=== PATIENT | female | born 1970 | race Caucasian/White ===

== ENCOUNTER 2018-02-09 21:34 | Emergency (ER) | payer OTHER ==
[~2018-02-09] VITALS: Ht 170.2 cm; Wt 119.7 kg
[~2018-02-09 21:34] MED LIST: CIPRO500 MG PO; CLONAZEPAM1 MG PO; LEVSIN0.125 MG PO; NORCO 10-325 T1 EACH; SAPHRIS5 MG PO; TRAZODONE HCL100 MG PO; ULTRAM50 MG PO; VIIBRYD10 MG PO; Z.0.AMBIEN10 MG PO
--- NOTE | 2018-02-09 22:52 | Diagnostic Imaging Report ---
KNEE RIGHT THREE VIEWS Comparison: None Clinical history: Status post fall with right knee pain x1 week Findings: Mild generalized soft tissue swelling. Curvilinear density posterior to the knee on lateral view is likely external. Subtle ossification along the fibular head appears fairly well-corticated. Otherwise no acute fracture. Impression: Age-indeterminate fibular head avulsion fracture, favor chronic. Correlate with site of pain. Otherwise no acute fracture. Signed by: Dr Melly Fitzpatrick MD on 02/09/2018 10:48 PM
== END 2018-02-09 23:41 | disposition home or self-care (01) ==
LOC: ER 21:34
DX: S83.421A Sprain of lateral collateral ligament of right knee, initial encounter (principal); S80.01XA Contusion of right knee, initial encounter; W01.0XXA Fall on same level from slipping, tripping and stumbling without subsequent striking against object, initial encounter; Y92.488 Other paved roadways as the place of occurrence of the external cause; F32.9 Major depressive disorder, single episode, unspecified
CPT/HCPCS: 99282

== ENCOUNTER → 2018-02-18 | Outpatient (CLI) | payer OTHER ==
--- NOTE | 2018-02-18 17:03 | Diagnostic Imaging Report ---
Bone Scan, three-phase Reason for exam: 47 F sustained fall to knees on concrete about 3 weeks ago. Persistent pain in right knee. Radiopharmaceutical: Tc-99m MDP 27 mCi Comparison: Right knee radiographs 02/09/2018 Following intravenous administration of the radiopharmaceutical, dynamic flow and immediate blood pool images of the knees in the anterior and posterior projection followed by delayed total body and selected spot images were obtained. Flow and blood pool images show symmetric distribution of tracer activity to the knees without focal abnormality. On the delayed images, focal markedly increased tracer is seen in the head of the right fibula. Focal increased tracer is seen in the left knee at the distal medial femoral condyle. Degenerative changes are seen in the shoulders and feet. Impression: 1. Finding in the right fibular head is consistent with recent fracture and corresponds to finding on recent radiographs of the right knee. 2. 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 Signed by: Dr. Mar Pope M.D. on 02/18/2018 4:59 PM
== END ==
LOC: NM 08:00
PROVIDERS: ATTEND Specialist
DX: R22.41 Localized swelling, mass and lump, right lower limb (principal)
CPT/HCPCS: 78306; A9503

== ENCOUNTER 2018-09-06 16:03 | Emergency (ER) | payer OTHER ==
[~2018-09-06] VITALS: Ht 170.2 cm; Wt 113.9 kg
--- OUTSIDE RECORDS SUMMARY | 2018-09-06 16:06 | XMS REPORT | Continuity of Care Document ---
Author Author [facility] Interface Address Unknown Phone Unavailable Problems Problem Status Onset Date Classification Date Reported Comments Source Allergic rhinitis 06/19/2016 Diagnosis 06/19/2016 [facility] Allergic Rhinitis Problem 06/19/2016 [facility] Medications Medication Details Route Status Patient Instructions Ordering Provider Order Date Source Amoxicillin 500 MG Oral Capsule amoxicillin 500 mg capsule Active [facility] Azelastine hydrochloride 0.137 MG/ACTUAT Metered Dose Nasal [place] azelastine 137 mcg (0.1 %) nasal spray aerosol Active [facility] Clonazepam 1 MG Oral Tablet clonazepam 1 mg tablet Active [facility] Fluticasone propionate 0.05 MG/ACTUAT Metered Dose Nasal [place] fluticasone 50 mcg/actuation nasal spray,suspension Inhale 2 sprays into each nostril EVERY DAY Active [facility] lamotrigine 25 MG Chewable Tablet lamotrigine 25 mg chewable dispersible tablet Active [facility] lamotrigine 25 MG Oral Tablet lamotrigine 25 mg tablet Active [facility] na na Active [facility] Phentermine Hydrochloride 37.5 MG Oral Tablet phentermine 37.5 mg tablet TK 1 T PO QD Active [facility] Dextromethorphan 3 MG/ML / Promethazine Hydrochloride 1.25 MG/ML Oral Solution promethazine-DM 6.25 mg-15 mg/5 mL syrup Active [facility] Asenapine 5 MG Sublingual Tablet [Saphris] Saphris (black vidal) 5 mg sublingual tablet Active [facility] tramadol hydrochloride 50 MG Oral Tablet tramadol 50 mg tablet Active [facility] Trazodone Hydrochloride 50 MG Oral Tablet trazodone 50 mg tablet Active [facility] vilazodone hydrochloride 40 MG Oral Tablet [Viibryd] Viibryd 40 mg tablet Active [facility] levocetirizine dihydrochloride 5 MG Oral Tablet [Xyzal] Xyzal 5 mg tablet Take 1 tablet every day by oral route for 30 days. Active [facility] Allergies, Adverse Reactions, Alerts Substance Category Reaction Severity Reaction type Status Date Reported Comments Source Sulfa (Sulfonamide Antibiotics) Hallucinations Moderate Allergy to substance 06/19/2016 [facility] Immunizations Immunization Date Given Site Status Last Updated Comments Source influenza, seasonal, injectable 11/04/2015 completed [facility] Results Order Name Results Value Reference Range Date Interpretation Comments Source Vital Signs Vital Sign Value Date Comments Source Diastolic (mm Hg) 84 06/19/2016 [facility] Height 67 06/19/2016 [facility] Systolic (mm Hg) 126 06/19/2016 [facility] Weight 240 06/19/2016 [facility] Encounters Location Location Details Encounter Type Encounter Number Reason For Visit Attending Provider ADM Date DC Date Status Source [place] - [facility] - [id number] Esparza, BAND DIRECTOR: [address] [place] [address], Ph. [id number] Cintia Esparza 06/19/2016 [facility] Procedures Procedure Code Date Perfomer Comments Source
--- OUTSIDE RECORDS SUMMARY | 2018-09-06 16:07 | XMS REPORT | Encounter Summary ---
Author Organization Unknown Address [address] [place] [address] Phone [phone] Reason for Visit Medical Complaint Instructions 1. Allergic rhinitis allergies: care instructions Xyzal 5 mg tablet fluticasone 50 mcg/actuation nasal spray,suspension Discussion Note: None recorded. Plan of Care Patient Instructions Please seek care (PCP, Urgent Care, ER) if symptoms get worse or do not resolve in 3 to 4 days or if you notice any signs of infection including fever,redness, tenderness or yellow discharge or onset of shortness of breath, lips or tounge swelling.Please read all the side effects of the medications, if you develop any side effects immediately stop the medication and please contact your PCP/UC[facility] or [facility] or call 911.Patient verbalizes understanding and agrees to the plan. Reminders Provider Appointments None recorded. Lab None recorded. Referral None recorded. Procedures None recorded. Surgeries None recorded. Imaging None recorded. Medications Name Start Date amoxicillin 500 mg capsule azelastine 137 mcg (0.1 %) nasal spray aerosol clonazepam 1 mg tablet fluticasone 50 mcg/actuation nasal spray,suspension Inhale 2 sprays into each nostril EVERY DAY lamotrigine 25 mg chewable dispersible tablet lamotrigine 25 mg tablet na phentermine 37.5 mg tablet TK 1 T PO QD promethazine-DM 6.25 mg-15 mg/5 mL syrup Saphris (black vidal) 5 mg sublingual tablet tramadol 50 mg tablet trazodone 50 mg tablet Viibryd 40 mg tablet Xyzal 5 mg tablet Take 1 tablet every day by oral route for 30 days. Medications Administered None recorded. Vitals Height Weight BMI Blood Pressure 5 ft 7 in 240 lbs 37.6 126/84 Lab Results None recorded. Allergies Name Reaction Severity Onset Sulfa (Sulfonamide Antibiotics) Hallucinations Moderate Problems Name Status Onset Date Source Allergic Rhinitis Active Encounter Procedures None recorded. Vaccine List Vaccine Type influenza, seasonal, injectable 11/03/2015 Social History Smoking Status Never Smoker Past Encounters 06/19/2016 Allergic Rhinitis Cintia Esparza, COLD PATCHER: [address] [place] [address], Ph. History of Present Illness Ldsvj-Ygiwoaifjw-Nzpquoc Reported By: Patient HPI: Location: head/sinuses. Quality: sore throat. Duration: 1days. Severity: moderate. Onset/Timing: sudden. Context: no sick contacts, no foreign travel, non-smoker, allergies. Modifying factors: OTC medication. Associated Symptoms: no sputum production, no shortness of breath, no wheezing, no change in number of pillows needed to sleep at night, no sweats, no significant weight gain, no significant weight loss, no morning cough, no vomiting, no diarrhea, no rash, no nausea Notes: Pt reports that she started with all the above symptoms from this afternoon, denies fever. Review of Systems Basic Reported By: Patient Constitutional: Constitutional: no fever Eyes: Eyes: dry eyes Adcc-Chsx-Bkvta-Throat: Ears: no ear complaints. Nose: nose/sinus problems. Mouth/Throat: no bleeding gums, no mouth complaints, no teeth problems, sore throat Cardiovascular: Cardiovascular: no chest pain, no shortness of breath, no known heart murmur Respiratory: Respiratory: no cough, no wheezing, no shortness of breath Gastrointestinal: Gastrointestinal: no abdominal pain, no vomiting / diarrhea Genitourinary: Genitourinary: no urinary complaints, no discharge Musculoskeletal: Musculoskeletal: no muscle aches, no muscle weakness, no arthralgias/joint pain, no back pain Skin: Skin: no abnormal / changing mole, no jaundice, no rashes Neurologic: Neurologic: no loss of consciousness, no weakness, no numbness, no seizures, no dizziness, headache Physical Exam Adult Basic, Adult Female Complete Constitutional: General Appearance: healthy-appearing, well-nourished, well-developed. Level of Distress: NAD. Ambulation: ambulating normally Psychiatric: Mental Status: active and alert. Orientation: to time, to place, to person Eyes: Lids and Conjunctivae: non-injected, no discharge, no pallor. Pupils: PERRLA. Corneas: grossly intact. EOM: EOMI. Lens: clear. Sclerae: non-icteric Llr-Hsia-Tkrvw-Throat: Ears: no lesions on external ear, no outer ear tenderness, EACs clear, TMs clear. Hearing: no hearing loss. Nose: no lesions on external nose, nares patent, no septal deviation, nasal passages clear, no sinus tenderness, nasal discharge--rhinorrhea, post nasal drip. Lips, Teeth, and Gums: no mouth or lip ulcers, no bleeding gums, normal dentition. Oropharynx: moist mucous membranes, no erythema, no exudates, tonsils not enlarged Neck: Neck: supple. Lymph Nodes: no cervical LAD Lungs: Respiratory effort: no dyspnea, no tachypnea. Auscultation: breath sounds normal Cardiovascular: Heart Auscultation: RRR, no murmurs Neurologic: Gait and Station: normal gait Skin: Inspection and palpation: no rash
--- OUTSIDE RECORDS SUMMARY | 2018-09-06 16:07 | XMS REPORT ---
Author Author [facility] Address Unknown Phone Unavailable Care Team Providers Care Route Driver Salesperson Name Role Phone MEL NATH Unavailable Unavailable Paul AMADOR Unavailable Unavailable Problems This patient has no known problems. Allergies, Adverse Reactions, Alerts This patient has no known allergies or adverse reactions. Medications This patient has no known medications. Results Test Description Test Time Test Comments Text Results Atomic Results Result Comments BONE and/or JOINT WHOLE BODY [place] [address] Patient Name: NAVIN GUZMAN MR #: [id number] : 1970 Age/Sex: 47/F Req #: [id number] [facility] Physician: Ordered by: MEL NATH MD Report #: [id number] Location: [place] Room/Bed: Procedure: [id number] NM/BONE and/or JOINT WHOLE BODY Exam Date: 02/18/18 Exam Time: 0845 REPORT STATUS: Signed Bone Scan, three-phase Reason for exam: 47 F sustained fall to knees on concrete about 3 weeks ago. Persistent pain in right knee. Radiopharmaceutical: Tc-99m MDP 27 mCi Comparison: Right knee radiographs 02/09/2018 Following intravenous administration of the radiopharmaceutical, dynamic flow and immediate blood pool images of the knees in the anterior and posterior projection followed by delayed total body and selected spot images were obtained. Flow and blood pool images show symmetric distribution of tracer activity to the knees without focal abnormality. On the delayed images, focal markedly increased tracer is seen in the head of the right fibula. Focal increased tracer is seen in the left knee at the distal medial femoral condyle. Degenerative changes are seen in the shoulders and feet. Impression: 1. Finding in the right fibular head is consistent with recent fracture and corresponds to finding on recent radiographs of the right knee. 2. 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 Signed by: Dr. Bird Pope M.D. on 02/18/2018 4:59 PM Dictated By: BIRD POPE MD 58 Transcribed By: ROM on 02/18/181658 COPY TO: MEL NATH MD KNEE RIGHT THREE VIEWS [place] [address] Patient Name: NAVIN GUZMAN MR #: [id number] : 1970 Age/Sex: 47/F Req #: [id number] Adm Physician: Ordered by: SAGAR AMADOR MD Report #: [id number] Location: ER Room/Bed: Procedure: [id number] DX/KNEE RIGHT THREE VIEWS Exam Date: 02/09/18 Exam Time: 2154 REPORT STATUS: Signed KNEE RIGHT THREE VIEWS Comparison: None Clinical history: Status post fall with right knee pain x1 week Findings: Mild generalized soft tissue swelling. Curvilinear density posterior to the knee on lateral view is likely external. Subtle ossification along the fibular head appears fairly well-corticated. Otherwise no acute fracture. Impression: Age-indeterminate fibular head avulsion fracture, favor chronic. Correlate with site of pain. Otherwise no acute fracture. Signed by: Dr Angeli Fitzpatrick MD on 02/09/2018 10:48 PM Dictated By: ANGELI FITZPATRICK MD 47 Transcribed By: ROM on 02/09/182247 COPY TO: SAGAR AMADOR MD
[2018-09-06] MEDS ORDERED: HYDROCODONE/APAP 10MG-325MG TAB PO ONE (16:45)
[2018-09-06] MEDS ORDERED: DIAZEPAM 5 MG TAB PO NR (16:45)
[2018-09-06] MEDS ORDERED: DIAZEPAM 2 MG TAB PO ONE (16:45)
[2018-09-06 17:46] VITALS: BP 114/78
== END 2018-09-06 17:00 | disposition home or self-care (01) ==
LOC: ER 16:03
DX: S16.1XXA Strain of muscle, fascia and tendon at neck level, initial encounter (principal); S46.811A Strain of other muscles, fascia and tendons at shoulder and upper arm level, right arm, initial encounter; S29.012A Strain of muscle and tendon of back wall of thorax, initial encounter; X50.9XXA Other and unspecified overexertion or strenuous movements or postures, initial encounter; Y93.E5 Activity, floor mopping and cleaning; Y92.009 Unspecified place in unspecified non-institutional (private) residence as the place of occurrence of the external cause; F31.9 Bipolar disorder, unspecified; Z88.2 Allergy status to sulfonamides
CPT/HCPCS: 99282

== ENCOUNTER 2018-11-27 19:37 | Emergency (ER) | payer OTHER ==
[~2018-11-27] VITALS: Ht 170.2 cm; Wt 113.9 kg
[2018-11-27] MEDS ORDERED: SODIUM CHLORIDE 0.9% 1000ML 1,000 ML IV STA (20:38)
[2018-11-27] MEDS ORDERED: ONDANSETRON HCL INJ 2MG/ML 2ML 2 MG/ML VIAL IV STA (20:38)
[2018-11-27] MEDS ORDERED: MORPHINE SULFATE INJ 4 MG/ML INJ 1ML IV STA (20:38)
[2018-11-27] MEDS ORDERED: CEFTRIAXONE SOD 1 GM VIAL IV ONE (21:00)
[2018-11-27 21:20] LABS: BASOPHILS % 0.3 % (0.0-1.0); HEMATOCRIT 42.9 % (34.2-44.1); LYMPHOCYTES # (AUTO) 2.8 (1.0-3.2); LYMPHOCYTES % 29.9 % (18.0-39.1); MEAN CORPUSCULAR HEMOGLOBIN 29.4 pg (28-32); MEAN CORPUSCULAR HGB CONC 32.6 g/dL (31-35); MEAN CORPUSCULAR VOLUME 90.1 fL (81-99); MONOCYTES # (AUTO) 0.5 (0.2-0.8); MONOCYTES % 4.9 % (4.4-11.3); NEUTROPHILS % 64.6 % (38.7-80.0); PLATELET COUNT 292 x10e3/uL (140-360); RED BLOOD COUNT 4.76 x10e6/uL (3.6-5.1)
[2018-11-27 21:38] LABS: ALANINE AMINOTRANSFERASE 16 IU/L (0-55); ALBUMIN 3.6 g/dL (3.5-5.0); ALBUMIN/GLOBULIN RATIO 1.2 (0.8-2.0); ALKALINE PHOSPHATASE 98 IU/L (40-150); ANION GAP 14.3 mmol/L (8-16); BLOOD UREA NITROGEN 13 mg/dL (7-26); BUN/CREATININE RATIO 13 (6-25); CALCIUM 9.2 mg/dL (8.4-10.2); CARBON DIOXIDE 25 mmol/L (22-29); CHLORIDE 102 mmol/L (98-107); CREATININE, SERUM 0.98 mg/dL (0.57-1.11); EST GLOMERULAR FILTRATION RATE 60 ML/MIN (60-); GLUCOSE 96 mg/dL (74-118); POTASSIUM 4.3 mmol/L (3.5-5.1); SODIUM 137 mmol/L (136-145)
[2018-11-27] MEDS ORDERED: SODIUM CHLORIDE 0.9% 50ML 50 ML ONE (21:46)
[2018-11-27] MEDS ORDERED: IOPAMIDOL 370 MG/ML 200 ML INFUS..BTL INJ ONE (21:46)
[2018-11-27 21:58] LABS: AMPHETAMINES SCREEN,URINE NEGATIVE (NEGATIVE); BENZODIAZEPINES SCREEN,URINE NEGATIVE (NEGATIVE); CLARITY,URINE HAZY (CLEAR); COLOR,URINE YELLOW (YELLOW); PHENCYCLIDINE SCREEN,URINE NEGATIVE (NEGATIVE)
[2018-11-27 21:59] LABS: BILIRUBIN,URINE NEGATIVE (NEGATIVE); KETONES,URINE TRACE (NEGATIVE); LEUKOCYTE ESTERASE ,URINE NEGATIVE (NEGATIVE); NITRITE,URINE NEGATIVE (NEGATIVE); PREGNANCY TEST, URINE NEGATIVE (NEGATIVE); PROTEIN,URINE DIPSTICK NEGATIVE (NEGATIVE); URINE UROBILINOGEN 0.2 mg/dL (0.2 - 1)
[2018-11-27 22:42] LABS: BACTERIA,URINE FEW /HPF; EPITHELIAL CELLS,URINE FEW /LPF; MUCUS,URINE FEW (RARE); RBC,URINE 0-5 /HPF (0-5); WBC,URINE (MAN) 0-5 /HPF (0-5)
--- NOTE | 2018-11-27 23:32 | Diagnostic Imaging Report ---
EXAM: CT Abdomen and Pelvis WITH contrast INDICATION: ^r/o appy ^[id number] ^2220 COMPARISON: CT dated 07/02/2015 TECHNIQUE: Abdomen and pelvis were scanned utilizing a multidetector helical scanner from the lung base to the pubic symphysis after administration of IV contrast. Coronal and sagittal reformations were obtained. Dose modulation, iterative reconstruction, and/or weight based adjustment of the mA/kV was utilized to reduce the radiation dose to as low as reasonably achievable. Routine protocol was performed. Scan was performed when during portal venous phase. IV CONTRAST: 100 mL of Isovue-370 ORAL CONTRAST: Water COMPLICATIONS: None RADIATION DOSE: Total DLP: 889.44 mGy*cm Estimated effective dose: (DLP x 0.015 x size factor) mSv CTDIvol has been reviewed. It is below the limits set by the Radiation Protocol Committee (RPC). FINDINGS: LINES and TUBES: None. LOWER THORAX: Unremarkable HEPATOBILIARY: No focal hepatic lesions. No biliary ductal dilation. GALLBLADDER: Surgically absent. SPLEEN: No splenomegaly. PANCREAS: No focal masses or ductal dilatation. ADRENALS: No adrenal nodules KIDNEYS/URETERS: Kidneys enhance symmetrically. No hydronephrosis. No cystic or solid mass lesions. Left midpole subcentimeter hypodensity is too small to characterize. No stones. GI TRACT: No abnormal distention, wall thickening, or evidence of bowel obstruction. There are scattered diverticula within the colon without evidence of diverticulitis. Appendix is normal. PELVIC ORGANS/BLADDER: Probably anterior uterine body degenerated fibroid (series 2, image 77). Bilateral adnexal/ovarian cysts. Bladder is unremarkable. LYMPH NODES: No lymphadenopathy. Nonspecific felicia mesentery with few prominent mesenteric lymph nodes, also seen in 2015. VESSELS: Unremarkable. PERITONEUM / RETROPERITONEUM: No free air or fluid. BONES: Unremarkable. SOFT TISSUES: Small fat-containing periumbilical hernia. IMPRESSION: 1. No acute inflammatory process in the abdomen/pelvis. 2. Normal appendix. 3. Peripherally enhancing anterior uterine body lesion, likely a degenerated fibroid. Signed by: Dr. Forrest Trejo MD on 11/27/2018 11:29 PM
== END 2018-11-28 00:20 | disposition home or self-care (01) ==
LOC: ER 19:37
DX: R10.31 Right lower quadrant pain (principal); R11.0 Nausea; F41.9 Anxiety disorder, unspecified; F31.9 Bipolar disorder, unspecified
CPT/HCPCS: 36415; 74177; 80053; 80307; 81001; 81025; 84702; 85025; 87086; 99284; J0696; J2270; J2405; J7030; Q9967

== ENCOUNTER 2019-04-19 15:40 | Emergency (ER) | payer OTHER ==
[~2019-04-19] VITALS: Ht 170.2 cm; Wt 113.9 kg
--- OUTSIDE RECORDS SUMMARY | 2019-04-19 15:44 | XMS REPORT | Continuity of Care Document ---
Author Author [facility] Address Unknown Phone Unavailable Care Team Providers Care Nurse Sitter Name Role Phone [employer] Unavailable Unavailable Problems Problem Status Onset Date Classification Date Reported Comments Source Allergic rhinitis 06/19/2016 Diagnosis 06/19/2016 [facility] Allergic Rhinitis Problem 06/19/2016 [facility] Medications Medication Details Route Status Patient Instructions Ordering Provider Order Date Source Amoxicillin 500 MG Oral Capsule amoxicillin 500 mg capsule Active [facility] Azelastine hydrochloride 0.137 MG/ACTUAT Metered Dose Nasal [place] azelastine 137 mcg (0.1 %) nasal spray aerosol Active [facility] Clonazepam 1 MG Oral Tablet clonazepam 1 mg tablet Active [facility] Fluticasone propionate 0.05 MG/ACTUAT Metered Dose Nasal [place] fluticasone 50 mcg/actuation nasal spray,suspension Inhale 2 [...] influenza, seasonal, injectable 11/04/2015 completed [facility] Results No Data Provided for This Section Pathology Reports No Data Provided for This Section Diagnostic Reports No Data Provided for This Section Consultation Notes No Data Provided for This Section Discharge Summaries No Data Provided for This Section History and Physicals No Data Provided for This Section Vital Signs Vital Sign Value Date Comments Source Diastolic (mm Hg) 84 06/19/2016 [facility] Height 67 06/19/2016 [facility] Systolic (mm Hg) 126 06/19/2016 [facility] Weight 240 06/19/2016 [facility] Encounters Location Location Details Encounter Type Encounter Number Reason For Visit Attending Provider ADM Date DC Date Status Source [place] - [facility] - [id number] Cintiaarslan Esparza, WELL TESTING OPERATOR: [address] [place] [address], Ph. [id number] Cintiaarslan Esparza 06/19/2016 [facility] Procedures No Data Provided for This Section Assessment and Plan No Data Provided for This Section Plan of Care No Data Provided for This Section Social History Social History Date Source Smoking Status Never Smoker 06/19/2016 [facility] Family History No Data Provided for This Section Advance Directives No Data Provided for This Section Functional Status No Data Provided for This Section
--- NOTE | 2019-04-19 16:21 | Diagnostic Imaging Report ---
CT BRAIN WO HISTORY: Right-sided weakness, trouble with speech COMPARISON: None. TECHNIQUE: Noncontrast axial scans were obtained from skull base to the vertex. Coronal and sagittal reconstructions obtained from the axial data. One or more of the following dose reduction techniques were used: Automated exposure control, adjustment of the mA and/or kV according to patient size, and/or utilization of iterative reconstruction technique. DISCUSSION: Scalp/Skull: Unremarkable. Brain sulci: Appropriate for patient's age. Ventricles: Normal in size and configuration. No hydrocephalus. Extra-axial spaces: No masses or fluid collections. Mild carotid siphon calcifications. Parenchyma: Mild periventricular white matter hypodensities are likely chronic microvascular ischemic changes. Otherwise, no mass, hemorrhage, or large vascular territory acute infarct. Dural sinuses: No abnormal densities. Sellar/Suprasellar region: Intact. Skull base: Intact. Incidental findings: Mild left sphenoid sinus mucosal thickening. IMPRESSION: 1. No acute intracranial abnormalities. 2. Mild supratentorial chronic microvascular ischemic change. Signed by: Dr. Obie Muñoz M.D. on 04/19/2019 4:18 PM
[2019-04-19] MEDS ORDERED: SODIUM CHLORIDE 0.9% 1000ML 1,000 ML IV STA ×2 (16:32)
[2019-04-19] MEDS ORDERED: SODIUM CHLORIDE 0.9% 1000ML 1,000 ML ONE ×2 (16:32→16:37)
[2019-04-19] MEDS ORDERED: PANTOPRAZOLE 40 MG 10ML VIAL IV ONE (16:32)
--- NOTE | 2019-04-19 16:36 | NUR ---
pt to be tx'd to another hospital. family in room and updated on poc/pending orders
[2019-04-19 16:45] LABS: BASOPHILS % 0.2 % (0.0-1.0); HEMATOCRIT 41.5 % (34.2-44.1); HEMOGLOBIN 13.5 g/dL (12.0-16.0); LYMPHOCYTES % 23.9 % (18.0-39.1); MEAN CORPUSCULAR HEMOGLOBIN 28.7 pg (28-32); MEAN CORPUSCULAR HGB CONC 32.5 g/dL (31-35); MEAN CORPUSCULAR VOLUME 88.3 fL (81-99); MONOCYTES # (AUTO) 0.5 (0.2-0.8); MONOCYTES % 5.4 % (4.4-11.3); NEUTROPHILS % 70.3 % (38.7-80.0); PLATELET COUNT 237 x10e3/uL (140-360); RED CELL DISTRIBUTION WIDTH 13.1 % (11.7-14.4)
[2019-04-19] MEDS ORDERED: FOLIC ACID 5 MG/ML VIAL IV ONE (16:45)
[2019-04-19] MEDS ORDERED: ALTEPLASE 50 MG/VIAL (29 MILLION IU) IV ONE ×2 (16:45)
[2019-04-19 16:49] LABS: CALCIUM 8.8 mg/dL (8.4-10.2); CHLORIDE 101 mmol/L (98-107); MAGNESIUM 2.2 MG/DL (1.3-2.1); POTASSIUM 3.4 mmol/L (3.5-5.1); PROTHROMBIN TIME 13.7 seconds (11.9-14.5); SODIUM 137 mmol/L (136-145)
[2019-04-19 16:50] LABS: PARTIAL THROMBOPLASTIN TIME 28.5 seconds (23.8-35.5)
[2019-04-19 16:54] LABS: ANION GAP 13.4 mmol/L (8-16); CARBON DIOXIDE 26 mmol/L (22-29)
[2019-04-19 16:55] LABS: ALBUMIN 3.2 g/dL (3.5-5.0); ALBUMIN/GLOBULIN RATIO 0.8 (0.8-2.0); ALKALINE PHOSPHATASE 89 IU/L (40-150); BLOOD UREA NITROGEN 11 mg/dL (7-26); BUN/CREATININE RATIO 13 (6-25); CREATININE, SERUM 0.88 mg/dL (0.57-1.11); EST GLOMERULAR FILTRATION RATE > 60 ML/MIN (60-); GLUCOSE 83 mg/dL (74-118)
[2019-04-19 16:57] LABS: ALANINE AMINOTRANSFERASE 12 IU/L (0-55); CREATINE KINASE 62 IU/L (29-168)
--- NOTE | 2019-04-19 17:01 | NUR ---
TPA STARTED;LOADING DOSE OF 9MG/ INFUSION AT 81MG
[2019-04-19 17:03] LABS: CREATINE KINASE MB < 1.00 ng/mL (0-4.3)
[2019-04-19 17:23] LABS: BILIRUBIN,URINE NEGATIVE (NEGATIVE); CLARITY,URINE CLEAR (CLEAR); COLOR,URINE YELLOW (YELLOW); KETONES,URINE NEGATIVE (NEGATIVE); LEUKOCYTE ESTERASE ,URINE NEGATIVE (NEGATIVE); NITRITE,URINE NEGATIVE (NEGATIVE); PROTEIN,URINE DIPSTICK NEGATIVE (NEGATIVE); URINE UROBILINOGEN 0.2 mg/dL (0.2 - 1)
--- NOTE | 2019-04-19 17:27 | NUR ---
ICU --7 SOUTH/BED 5. [phone]-ATTEMPTING TO CALL REPORT AT THIS TIME.
[2019-04-19 17:37] LABS: BACTERIA,URINE MODERATE /HPF
[2019-04-19 17:38] LABS: EPITHELIAL CELLS,URINE FEW /LPF
--- NOTE | 2019-04-19 17:46 | NUR ---
REPORT CALLED TO ALYSSA CUMMINGS AT THIS TIME
--- NOTE | 2019-04-19 18:03 | Diagnostic Imaging Report ---
CTA NECK, CTA BRAIN HISTORY: Right-sided weakness COMPARISON: Head CT from earlier today TECHNIQUE: CTA of the head and neck was performed with intravenous iodine based contrast. Coronal, sagittal, 3-D, and oblique maximum intensity projection reformations were created. One or more of the following dose reduction techniques were used: Automated exposure control, adjustment of the mA and/or kV according to patient size, and/or utilization of iterative reconstruction technique. 100 mL of Isovue-370 were administered. DISCUSSION: If present, any cervical carotid stenosis will be measured as a percentage relative to the [place] artery distal to the stenosis (NASCET). CERVICAL CTA: Right Carotid: Patent, no abnormalities. Left Carotid: Patent, no abnormalities. Right vertebral artery: Patent, no abnormalities. Left vertebral artery: Patent, no abnormalities. INTRACRANIAL CTA: Carotid arteries: Minimal bilateral carotid siphon calcifications are present without significant stenosis. No abnormalities in the A1 or M1 segments. Vertebrobasilar Circulation: Right vertebral artery: Patent, no abnormalities. Left vertebral artery: Patent, no abnormalities. Basilar artery: Patent, no abnormalities. Posterior cerebral arteries: Patent, no abnormalities. Normal Variants: ACom: Patent. PComs: Not visualized. Vertebral arteries: Left slightly dominant The major dural venous sinuses are grossly patent. Additional findings: The adenoid tonsils are mildly prominent. The thyroid gland is mildly enlarged and mildly heterogeneous. There is mild mucosal thickening in the left sphenoid sinus. There are mild degenerative changes throughout the spine. IMPRESSION: 1. Minimal bilateral carotid siphon calcifications without significant stenosis. 2. No other intracranial or cervical CTA abnormalities. Signed by: Dr. Obie Muñoz M.D. on 04/19/2019 6:00 PM
--- NOTE | 2019-04-19 18:04 | Diagnostic Imaging Report ---
EXAMINATION: CHEST SINGLE (PORTABLE) INDICATION: Stroke. Weakness. ^ERMD ORDER ^[id number] ^1730 ^Y COMPARISON: None FINDINGS: TUBES and LINES: None. LUNGS: Lungs are well inflated. Lungs are clear. There is no evidence of pneumonia or pulmonary edema. PLEURA: No pleural effusion or pneumothorax. HEART AND MEDIASTINUM: The cardiomediastinal silhouette is unremarkable. BONES AND SOFT TISSUES: No acute osseous lesion. Soft tissues are unremarkable. UPPER ABDOMEN: No free air under the diaphragm. IMPRESSION: No acute thoracic abnormality. Signed by: Dr. Luis Eduardo Cabral M.D. on 04/19/2019 6:01 PM
--- NOTE | 2019-04-19 19:05 | NUR ---
ETA FOR AMBULANCE IS APPROX. 30 MIN.
--- NOTE | 2019-04-19 19:20 | NUR ---
family updated. pt speaking in complete sentences and able to make needs known.
--- NOTE | 2019-04-19 20:01 | NUR ---
[facility] HERE TO [place] PT. Addendum: 04/19/19 at 2016 by [facility]; HERE TO TX PT. VENKATESH.
[2019-04-19] MEDS ORDERED: IOPAMIDOL 370 MG/ML 200 ML INFUS..BTL INJ ONE (22:27)
[2019-04-19] MEDS ORDERED: SODIUM CHLORIDE 0.9% 100 ML 100 ML ONE (22:27)
== END 2019-04-19 20:01 | disposition other institution (70) ==
LOC: ER 15:40
DX: R53.1 Weakness (principal); I63.512 Cerebral infarction due to unspecified occlusion or stenosis of left middle cerebral artery; R26.2 Difficulty in walking, not elsewhere classified
CPT/HCPCS: 36415; 70450; 70496; 70498; 71045; 80048; 80053; 81001; 82550; 82553; 83735; 83880; 84443; 84484; 85025; 85610; 85730; 93005; 99284; J7030; Q9967

== ENCOUNTER 2019-04-23 07:30 | Observation (INO) | payer OTHER ==
[~2019-04-23] VITALS: Ht 170.2 cm; Wt 113.4 kg
--- OUTSIDE RECORDS SUMMARY | 2019-04-23 07:35 | XMS REPORT | Clinical Summary ---
Author Author KAREN [facility] Address Unknown Phone Unavailable Care Team Providers Care Sound Controller Name Role Phone Abhilash Purdy MD PCP Allergies No Known Allergies Medications End Date Status Medication Sig Dispensed Refills Start Date Active clonazePAM (KLONOPIN) 1 Take 1 mg by 0 MG tablet mouth 2 (two) times daily as needed for Anxiety. Active asenapine [address] 5 mg 0 under the tongue 2 (two) times daily. Active vilazodone (VIIBRYD) 40 Take 40 mg by 0 mg tablet mouth nightly. Active traZODone (DESYREL) 50 MG Take 50 mg by 0 tablet mouth 3 (three) times daily. Active pantoprazole sodium Take 20 mg by 0 (PROTONIX ORAL) mouth. Active lamoTRIgine (LAMICTAL) 25 Take 25 mg by 0 MG tablet mouth 2 (two) times daily. Active Problems Problem Noted Date Stroke 04/19/2019 S/P admn tPA in diff fac w/n last 24 hr bef adm to crnt fac 04/19/2019 Anxiety 04/19/2019 Bipolar 1 disorder 04/19/2019 Encounters Care Team Description Date Type Specialty 04/20/2019 Orders Only General Internal Medicine 04/20/2019 Travel Chalino Skaggs MD Cerebrovascular accident (CVA), unspecified mechanism (HCC) 04/19/2019 Hospital Intensive Care - Encounter 04/20/2019 after 04/22/2018 Social History Date Tobacco Use Types Packs/Day Years Used Never Smoker Smokeless Tobacco: Never Used Alcohol Use Drinks/Week oz/Week Comments No Alcohol Habits Answer Date Recorded How often do you have a drink containing alcohol? Never 04/20/2019 How many drinks containing alcohol do you have on Not asked a typical day when you are drinking? How often do you have six or more drinks on one Not asked occasion? Sex Assigned at Date Recorded Not on file Industry Job Start Date Occupation Not on file Not on file Not on file Travel End Travel History Travel Start No recent travel history available. Last Filed Vital Signs Time Taken Vital Sign Reading 04/20/2019 9:00 PM CDT Blood Pressure 122/60 04/20/2019 9:00 PM CDT Pulse 63 04/20/2019 8:00 PM CDT Temperature 36.8 C (98.3 F) 04/20/2019 9:00 PM CDT Respiratory Rate 14 04/20/2019 9:00 PM CDT Oxygen Saturation 93% - Inhaled Oxygen - Concentration 04/19/2019 9:15 PM CDT Weight 112.3 kg (247 lb 9.2 oz) 04/19/2019 9:15 PM CDT Height 170.2 cm (5' 7") 04/19/2019 9:15 PM CDT Body Mass Index 38.78 Plan of Treatment Not on file Procedures Comments Procedure Name Priority Date/Time Associated Diagnosis ECHOCARDIOGRAM REPORT - 04/20/2019 SCAN 9:10 PM CDT MR BRAIN WITHOUT IV Routine 04/20/2019 CONTRAST 7:53 PM CDT MAGNESIUM Routine 04/20/2019 2:50 PM CDT POTASSIUM Routine 04/20/2019 2:50 PM CDT 2D ECHO W/ DOPPLER Routine 04/20/2019 (CW/PW/COLOR) 10:52 AM CDT CBC W/PLT COUNT & AUTO Routine 04/20/2019 DIFFERENTIAL 4:07 AM CDT PHOSPHORUS Routine 04/20/2019 4:07 AM CDT MAGNESIUM Routine 04/20/2019 4:07 AM CDT T4, FREE Routine 04/20/2019 4:07 AM CDT TROPONIN I Routine 04/20/2019 4:07 AM CDT TSH/FREE T4 IF INDICATED Routine 04/20/2019 4:07 AM CDT VITAMIN B12 Routine 04/20/2019 4:07 AM CDT HEMOGLOBIN A1C Routine 04/20/2019 4:07 AM CDT CBC W/PLT COUNT & AUTO Routine 04/20/2019 DIFFERENTIAL 4:07 AM CDT LIPID PANEL Routine 04/20/2019 4:07 AM CDT BASIC METABOLIC PANEL (7) Routine 04/20/2019 4:07 AM CDT TROPONIN I Routine 04/20/2019 12:43 AM CDT after 04/22/2018 Results * ECHOCARDIOGRAM REPORT - SCAN (04/20/2019 9:10 PM CDT) Narrative Performed At * MR brain without IV contrast (04/20/2019 7:53 PM CDT) Specimen Narrative Performed At [facility] MR, BRAIN, WITHOUT CONTRAST INDICATION: Stroke TECHNIQUE: Multiplanar, multisequence MR imaging of the brain was obtained. COMPARISON: None FINDINGS: Brain parenchyma is normal in morphology. Midline structures are normally developed. No restricted diffusion to suggest recent ischemic insult. No abnormal susceptibility. Scattered T2/FLAIR hyperintense foci within the periventricular and subcortical white matter are nonspecific, however, statistically represent chronic microvascular ischemic changes. No hydrocephalus. Orbits are within normal limits. No obstructive paranasal sinus disease. IMPRESSION: Unremarkable MRI of the brain. Signed: Ligia Hubbard MD Report Verified Date/Time:04/20/2019 19:51:20 Reading Location: [address] Neuro Reading Room Procedure Note Interface, External Ris In - 04/20/2019 7:54 PM CDT FINAL REPORT MR, BRAIN, WITHOUT CONTRAST INDICATION: Stroke TECHNIQUE: Multiplanar, multisequence MR imaging of the brain was obtained. COMPARISON: None FINDINGS: Brain parenchyma is normal in morphology. Midline structures are normally developed. No restricted diffusion to suggest recent ischemic insult. No abnormal susceptibility. Scattered T2/FLAIR hyperintense foci within the periventricular and subcortical white matter are nonspecific, however, statistically represent chronic microvascular ischemic changes. No hydrocephalus. Orbits are within normal limits. No obstructive paranasal sinus disease. IMPRESSION: Unremarkable MRI of the brain. Signed: Ligia Hubbard MD Report Verified Date/Time: 04/20/2019 19:51:20 Reading Location: [facility] [id number] Neuro Reading Room Performing Organization Address City/State/Zipcode Phone Number RIS * Potassium (04/20/2019 2:50 PM CDT) Potassium 3.7Comment: Specimen slightly 3.5 - 5.1 meq/L [facility] hemolyzed [facility] Specimen Blood Narrative Performed At Check Serum Potassium level 2 hours after oral potassium replacement completed [facility] or 30 min after intravenous potassium replacement. [facility] Performing Organization Address [facility] [place] [address] [phone] [place] [address] * Magnesium (04/20/2019 2:50 PM CDT) Only the most recent of 2 results within the time period is included. Magnesium 2.5Comment: Specimen slightly 1.6 - 2.6 mg/dL [facility] hemolyzed [facility] Specimen Blood Narrative Performed At Check Serum Potassium level 2 hours after oral potassium replacement completed [facility] or 30 min after intravenous potassium replacement. [facility] Performing Organization Address [facility] Hospital[facility] Phone Number [address] [address] [facility] * 2D Echo W/Doppler(CW/PW/Color) (04/20/2019 10:52 AM CDT) Ejection Fraction [facility] Specimen Narrative Performed At Transthoracic Echocardiography Report (TTE) [facility] Demographics [facility] Patient NameCHADANIELLA DREW Date of Study 04/20/2019 KALI Visit [id number] own Room Number 7519 Number Date of 1970Referring Chalino Skaggs Physician Age 48 year(s)Aquatic Facility Manager Tony Lockett [facility] Skating Carhop Janak Rodgers MD Procedure Type of Study TTE procedure:2DECHO W DOPPLER(CW/PW/COLOR) (Routine) Indications:Suspected cardiac source of emboli. Clinical History Stroke/TIA HGB 12 HCT 37 % Contrast Medium: Bubble Study. Height: 67 inches Weight: 112.04 kg (247 lbs) BSA: 2.21 m^2 BMI: 38.69 kg/m^2 HR: 54 bpm BP: 142/75 mmHg Summary Normal left ventricular chamber size. Normal wall thickness. Normal overall left ventricular systolic function. No apparent segmental wall motion abnormalities. Estimated LVEF by qualitative assessment is normal (55-60%) . Normal diastolic function. Otherwise, essentially normal exam. Signature Findings Left Ventricle Normal left ventricular chamber size. Normal wall thickness. Normal overall left ventricular systolic function. No apparent segmental wall motion abnormalities. Estimated LVEF by qualitative assessment is normal (55-60%) . Normal diastolic function. Left AtriumLA size is normal . Right VentricleNormal right ventricle structure and function. Right Atrium Normal right atrium. Atrial SeptumIV saline contrast injection was negative for a PFO (patent foramen ovale) at rest and post Valsalva . Aortic Valve Normal AoV structure. Mild aortic regurgitation. Mitral Valve Mild MV leaflet thickening. Trace mitral regurgitation. Tricuspid ValveA trace of tricuspid regurgitation. Estimated peak systolic PA pressure is 25-30 mmHg . Normal TV structure. Pulmonic Valve Normal PV structure and function by limited views and Doppler. AortaAortic root size (SInus of Valsalva diameter) is normal . PericardiumNo evidence of pericardial effusion. IVC/SVC/PA/PV/PleuralThe estimated RA pressure by IVC dynamics 5-10mmHg . Chambers/Structures Left Atrium LA Dimension: 4.03 cmLA Area: 20.96 cm^2 LA Volume: 64.35 ml LA Vol. Index: 29 ml/m^2 Left Ventricle LVIDd: 4.56 cm LV Septum Diastolic: 0.97 cm LV PW Diastolic: 0.96 cm LVEDV Girard's:102.89 ml LVESV Girard's:44.55 ml LVEF Girard's: 56.7 %LVEDVI: 47 ml/m^2 LVESVI: 20 ml/m^2 LVOT Diameter: 2.21 cm Aorta Ao Root S of Leonor.: 2.96 cm Doppler/Quantitative Measurements Mitral Valve MV Peak E-Wave: 0.96 m/sMV Peak A-Wave: 0.6 m/s E/A Ratio: 1.6 Peak Gradient: 3.69 mmHg Deceleration Time: 206.5 msec MV Casimiro. Peak: Tissue Doppler E' Lateral Velocity: 0.11 m/s A' Lateral Velocity: 0.08 m/s E/E': 8.94 LVOT Peak Velocity: 1.18 m/s Peak Gradient: 5.59 mmHg Mean Velocity: 0.71 m/s Mean Gradient: 2.4 mmHg LVOT Diameter: 2.21 cmLVOT VTI: 26.31 cm LVOT Area: 3.84 cm^2LVOT SV:100.87 ml LVOT CO: 5.45 l/min LVOT CI: 2.47 l/min/m^2 Procedure Note Interface, External Ris In - 04/20/2019 5:08 PM CDT Transthoracic Echocardiography Report (TTE) Demographics Patient Name DANIELLA GUZMAN Date of Study 04/20/2019 KALI Gender Female Visit Number [id number] Race Unknown Room Number 7519 Number Date of 1970 Referring Chalino Skaggs Physician Age 48 year(s) Aquatic Facility Manager Tony Lockett [facility] Skating Carhop Janak Vallejo Interpreting Narciso Rodgers MD Procedure Type of Study TTE procedure:2DECHO W DOPPLER(CW/PW/COLOR) (Routine) Indications:Suspected cardiac source of emboli. Clinical History Stroke/TIA HGB 12 HCT 37 % Contrast Medium: Bubble Study. Height: 67 inches Weight: 112.04 kg (247 lbs) BSA: 2.21 m^2 BMI: 38.69 kg/m^2 HR: 54 bpm BP: 142/75 mmHg Summary Normal left ventricular chamber size. Normal wall thickness. Normal overall left ventricular systolic function. No apparent segmental wall motion abnormalities. Estimated LVEF by qualitative assessment is normal (55-60%) . Normal diastolic function. Otherwise, essentially normal exam. Signature Findings Left Ventricle Normal left ventricular chamber size. Normal wall thickness. Normal overall left ventricular systolic function. No apparent segmental wall motion abnormalities. Estimated LVEF by qualitative assessment is normal (55-60%) . Normal diastolic function. Left Atrium LA size is normal . Right Ventricle Normal right ventricle structure and function. Right Atrium Normal right atrium. Atrial Septum IV saline contrast injection was negative for a PFO (patent foramen ovale) at rest and post Valsalva . Aortic Valve Normal AoV structure. Mild aortic regurgitation. Mitral Valve Mild MV leaflet thickening. Trace mitral regurgitation. Tricuspid Valve A trace of tricuspid regurgitation. Estimated peak systolic PA pressure is 25-30 mmHg . Normal TV structure. Pulmonic Valve Normal PV structure and function by limited views and Doppler. Aorta Aortic root size (SInus of Valsalva diameter) is normal . Pericardium No evidence of pericardial effusion. IVC/SVC/PA/PV/Pleural The estimated RA pressure by IVC dynamics 5-10mmHg . Chambers/Structures Left Atrium LA Dimension: 4.03 cm LA Area: 20.96 cm^2 LA Volume: 64.35 ml LA Vol. Index: 29 ml/m^2 Left Ventricle LVIDd: 4.56 cm LV Septum Diastolic: 0.97 cm LV PW Diastolic: 0.96 cm LVEDV Girard's:102.89 ml LVESV Girard's:44.55 ml LVEF Girard's: 56.7 % LVEDVI: 47 ml/m^2 LVESVI: 20 ml/m^2 LVOT Diameter: 2.21 cm Aorta Ao Root S of Leonor.: 2.96 cm Doppler/Quantitative Measurements Mitral Valve MV Peak E-Wave: 0.96 m/s MV Peak A-Wave: 0.6 m/s E/A Ratio: 1.6 Peak Gradient: 3.69 mmHg Deceleration Time: 206.5 msec MV Casimiro. Peak: Tissue Doppler E' Lateral Velocity: 0.11 m/s A' Lateral Velocity: 0.08 m/s E/E': 8.94 LVOT Peak Velocity: 1.18 m/s Peak Gradient: 5.59 mmHg Mean Velocity: 0.71 m/s Mean Gradient: 2.4 mmHg LVOT Diameter: 2.21 cm LVOT VTI: 26.31 cm LVOT Area: 3.84 cm^2 LVOT SV:100.87 ml LVOT CO: 5.45 l/min LVOT CI: 2.47 l/min/m^2 Performing Organization Address City/[facility] Phone Number [facility] * TSH/Free T4 If Indicated (04/20/2019 4:07 AM CDT) TSH 6.68 (H) 0.35 - 4.94 uIU/mL [facility] Specimen Blood Performing Organization Address City/[facility]/Zipcode Phone Number [facility] [address] [place] [address] [facility] * CBC with platelet count + automated diff (04/20/2019 4:07 AM CDT) WBC 6.9 3.5 - 10.5 K/L [facility] RBC 4.17 3.93 - 5.22 M/L [facility] Hemoglobin 12.0 11.2 - 15.7 GM/DL [facility] Hematocrit 37.0 34.1 - 44.9 % [facility] MCV 88.7 79.4 - 94.[address] [facility] MCH 28.8 25.6 - 32.[address] [facility] MCHC 32.4 32.2 - 35.5 GM/DL [facility] RDW 13.2 11.7 - 14.4 % [facility] Platelets 228 150 - 450 K/CU MM [facility] MPV 10.1 9.4 - 12.[address] [facility] nRBC 0 0 - 0 /[address] [facility] % Neutros 67 % [facility] % Lymphs 27 % [facility] % Monos 6 % [facility] % Eos 0 % [facility] % Baso 0 % [facility] # Neutros 4.61 1.56 - 6.13 K/L [facility] # Lymphs 1.88 1.18 - 3.74 K/L [facility] # Monos 0.41 (H) 0.24 - 0.36 K/L [facility] # Eos 0.00 (L) 0.04 - 0.36 K/L [facility] # Baso 0.01 0.01 - 0.08 K/L [facility] Immature 0 0 - 1 % [facility] Granulocytes-[facility] Specimen Blood Performing Organization Address City/State/Zipcode Phone Number [place] [phone] [place] [address] [facility] * Troponin I (04/20/2019 4:07 AM CDT) Only the most recent of 2 results within the time period is included. Troponin I 0.01 0.00 - 0.03 ng/mL [facility] Specimen Blood Narrative Performed At Troponin I (TnI) levels must be interpreted in the context of the presenting [facility] symptoms and the clinical findings. Elevated TnI levels indicate myocardial [facility] damage, but are not specific for ischemic heart disease. Elevated TnI levels are seen in patients with other cardiac conditions (including myocarditis and congestive heart failure), and slight TnI elevations occur in patients with other conditions, including sepsis, renal failure, acidosis, acute neurological disease, and persistent tachyarrhythmia. Fasting Performing Organization Address City/[facility]/Zipcode Phone Number [address] [address] [phone] [place] [address] * T4, free (04/20/2019 4:07 AM CDT) Free T4 0.99 0.70 - 1.48 ng/dL [facility] Specimen Blood Performing Organization Address City/[facility] Phone Number [address] [address] [phone] [place] [address] * Phosphorus (04/20/2019 4:07 AM CDT) Phosphorus 3.3 2.3 - 4.7 mg/dL [facility] Specimen Blood Narrative Performed At Fasting [facility] Performing Organization Address City/State/Zipcode Phone Number [address] [address] [facility] * Hemoglobin A1c - Fasting (04/20/2019 4:07 AM CDT) Hemoglobin A1C 5.2 4.3 - 6.1 % [facility] Specimen Blood Narrative Performed At Fasting [facility] Performing Organization Address City/State/Zipcode Phone Number [facility] [address] [place] [address] [facility] * Vitamin B12 (04/20/2019 4:07 AM CDT) Vitamin B12 254 213 - 816 pg/mL [facility] Specimen Blood Performing Organization Address City/State/Zipcode Phone Number [facility] [address] [place], [place] [phone] [facility] * Fasting lipid panel (04/20/2019 4:07 AM CDT) Triglycerides 58 mg/dL [facility] Cholesterol 113 mg/dL [facility] HDL 36 mg/dL [facility] LDL Calculated 65 mg/dL [facility] Specimen Blood Narrative Performed At Triglyceride Reference Range: [facility] Low Risk <150 [facility] [id number] High Risk 200-499 Very High Risk>=500 Cholesterol Reference Range: Low Risk <200 [id number] High Risk>240 HDL Cholesterol Reference Range: Low Risk >=60 High Risk <40 LDL Cholesterol Reference Range: Optimal<100 Near [id number] [id number] [id number] Very High >=190 Fasting Fasting Performing Organization Address City/State/Zipcode Phone Number [facility] [address] [place] [address] [facility] * Basic Metabolic Panel (04/20/2019 4:07 AM CDT) Sodium 137 136 - 145 meq/L [facility] Potassium 2.8 (L) 3.5 - 5.1 meq/L [facility] Chloride 105 98 - 107 meq/L [facility] CO2 26 22 - 29 meq/L [facility] BUN 9 7 - 21 mg/dL [facility] Creatinine 0.74 0.57 - 1.25 mg/dL [facility] Glucose 86 70 - 105 mg/dL [facility] Calcium 7.8 (L) 8.4 - 10.2 mg/dL [facility] EGFR 83Comment: ESTIMATED GFR IS mL/min/1.73 sq m [facility] NOT ACCURATE CREATININE [facility] CLEARANCE IN PREDICTING GLOMERULAR FILTRATION RATE. ESTIMATED GFR IS NOT APPLICABLE FOR DIALYSIS PATIENTS. Specimen Blood Narrative Performed At [facility] Performing Organization Address City/State/Zipcode Phone Number [facility] [address] [place], [place] [phone] [facility] after 04/22/2018 Insurance Payer Benefit Subscriber ID Type Phone Address Plan / Group [employer] - [place] [employer] xxxxxxxxxxx LOCAL PLUS Advance Directives For more information, please contact: [address] [phone] Date Inactivated Comments Code Status Date Activated 04/21/2019 12:33 AM Full Code 04/19/2019 10:01 PM This code status was determined by: Patient
--- OUTSIDE RECORDS SUMMARY | 2019-04-23 07:35 | XMS REPORT | Continuity of Care Document ---
Author Author [facility] Address Unknown Phone Unavailable Care Team Providers Care Dynamics Ax Solution Architect Name Role Phone [employer] Unavailable Unavailable Problems Problem Status Onset Date Classification Date Reported Comments Source Allergic rhinitis 06/19/2016 Diagnosis 06/19/2016 [facility] Allergic Rhinitis Problem 06/19/2016 [facility] Medications Medication Details Route Status Patient Instructions Ordering Provider Order Date Source Amoxicillin 500 MG Oral Capsule amoxicillin 500 mg capsule Active [facility] Azelastine hydrochloride 0.137 MG/ACTUAT Metered Dose Nasal [place] azelastine 137 mcg (0.1 %) nasal spray aerosol Active [facility] Clonazepam 1 MG Oral Tablet clonazepam 1 mg tablet Active [facility] Fluticasone propionate 0.05 MG/ACTUAT Metered Dose Nasal [place] fluticasone 50 mcg/actuation nasal spray,suspension Inhale 2 [...] Date Status Source [place] - [facility] - [id number] Cintiaarslan Esparza, SENIOR TALENT MANAGEMENT CONSULTANT: [address] [place] [address], Ph. [id number] Cintiaarslan Esparza 06/19/2016 [facility] Procedures No Data [...]
--- NOTE | 2019-04-23 08:47 | Diagnostic Imaging Report ---
Exam: Head CT without contrast History: Right arm weakness, headache, status post TPA x4 days ago Comparison studies: Head CT 04/19/2019. Technique: Axial images were obtained from the skull base to the vertex. Coronal and sagittal images reconstructed from the axial data. Dose modulation, iterative reconstruction, and/or weight based adjustment of the mA/kV was utilized to reduce the radiation dose to as low as reasonably achievable. Radiation dose: Total DLP: 921 mGy*cm. Estimated effective dose: DLP x 0.015 Intravenous contrast: None Findings: Scalp: No abnormalities. Bones: No fractures, blastic or lytic lesions. Brain sulci: Appropriate for age. Ventricles: Normal in size and configuration. No hydrocephalus. Extra-axial spaces: No masses, no fluid collection. Parenchyma: No abnormal densities. No masses, hemorrhage, acute or chronic vascular insults. Sellar/suprasellar region: No abnormalities. Craniocervical junction: Patent foramen magnum. No Chiari one malformation. Incidental findings: Atherosclerotic calcifications in the carotid siphons. IMPRESSION: No acute intracranial abnormalities or changes from the prior head CT of 04/19/2019. Specifically, no acute hemorrhage or acute cortical infarct. Brain MRI could be considered to further evaluate if there is persistent concern for acute ischemia. Signed by: Dr. Parviz Willis M.D. on 04/23/2019 8:43 AM
[2019-04-23 09:11] LABS: BASOPHILS % 0.3 % (0.0-1.0); EOSINOPHILS % 0.1 % (0.0-6.0); HEMATOCRIT 42.5 % (34.2-44.1); HEMOGLOBIN 13.2 g/dL (12.0-16.0); LYMPHOCYTES # (AUTO) 1.9 (1.0-3.2); MEAN CORPUSCULAR HEMOGLOBIN 28.1 pg (28-32); MEAN CORPUSCULAR HGB CONC 31.1 g/dL (31-35); MEAN CORPUSCULAR VOLUME 90.4 fL (81-99); MONOCYTES # (AUTO) 0.4 (0.2-0.8); MONOCYTES % 6.1 % (4.4-11.3); NEUTROPHILS # (AUTO) 4.5 (2.1-6.9); NEUTROPHILS % 65.1 % (38.7-80.0); PLATELET COUNT 232 x10e3/uL (140-360); RED CELL DISTRIBUTION WIDTH 13.2 % (11.7-14.4)
[2019-04-23 09:35] LABS: INR 0.93
[2019-04-23 09:36] LABS: ALANINE AMINOTRANSFERASE 16 IU/L (0-55); ALBUMIN 3.1 g/dL (3.5-5.0); ALBUMIN/GLOBULIN RATIO 0.8 (0.8-2.0); ALKALINE PHOSPHATASE 82 IU/L (40-150); ANION GAP 13.5 mmol/L (8-16); BLOOD UREA NITROGEN 15 mg/dL (7-26); BUN/CREATININE RATIO 14 (6-25); CALCIUM 8.7 mg/dL (8.4-10.2); CARBON DIOXIDE 25 mmol/L (22-29); CHLORIDE 106 mmol/L (98-107); CREATINE KINASE 51 IU/L (29-168); CREATININE, SERUM 1.07 mg/dL (0.57-1.11); EST GLOMERULAR FILTRATION RATE 55 ML/MIN (60-); GLUCOSE 93 mg/dL (74-118); PARTIAL THROMBOPLASTIN TIME 29.6 seconds (23.8-35.5); POTASSIUM 3.5 mmol/L (3.5-5.1); SODIUM 141 mmol/L (136-145)
[2019-04-23] MEDS ORDERED: LAMICTAL100 MG PO (09:53)
[2019-04-23] MEDS ORDERED: FIORINAL 50-321 EACH PO (09:54)
[2019-04-23] MEDS ORDERED: SODIUM CHLORIDE 0.9% 500ML 500 ML IV ONE (10:30)
[2019-04-23] MEDS ORDERED: ASPIRIN 81 MG CHEW TAB PO ONE (11:00)
[2019-04-23] MEDS ORDERED: VALPROATE SOD INJ 500 MG in SODIUM CHLORIDE 0.9% 100 ML 100 ML IV ONE (12:30)
--- OUTSIDE RECORDS SUMMARY | 2019-04-23 13:15 | XMS REPORT | Continuity of Care Document ---
Author Author [facility] Address Unknown Phone Unavailable Care Team Providers Care Appliance Adjuster Name Role Phone [email or web address] Unavailable Unavailable Problems Problem Status Onset Date Classification Date Reported Comments Source Allergic rhinitis 06/19/2016 Diagnosis 06/19/2016 [facility] Allergic Rhinitis Problem 06/19/2016 [facility] Medications Medication Details Route Status Patient Instructions Ordering Provider Order Date Source Amoxicillin 500 MG Oral Capsule amoxicillin 500 mg capsule Active [facility] Azelastine hydrochloride 0.137 MG/ACTUAT Metered Dose Nasal [place] azelastine 137 mcg (0.1 %) nasal spray aerosol Active [facility] Clonazepam 1 MG Oral Tablet clonazepam 1 mg tablet Active [facility] Fluticasone propionate 0.05 MG/ACTUAT Metered Dose Nasal [place] fluticasone 50 mcg/actuation nasal spray,suspension Inhale 2 [...] Date Status Source [place] - [facility] - [id number] Cintiaarslan Esparza, AREA RELIEF PILOT: [address] [place] [address], Ph. [id number] Cintiaarslan Esparza 06/19/2016 [facility] Procedures No Data [...]
--- OUTSIDE RECORDS SUMMARY | 2019-04-23 13:15 | XMS REPORT | Clinical Summary ---
Author Author KAREN [facility] Address Unknown Phone Unavailable Care Team Providers Care Department [employer] Name Role Phone Abhilash Purdy MD PCP [...] CDT) Specimen Narrative Performed At FINAL REPORT [facility] MR, BRAIN, WITHOUT CONTRAST INDICATION: Stroke TECHNIQUE: [...] MD Report Verified Date/Time:04/20/2019 19:51:20 Reading Location: [address] Neuro Reading Room Procedure Note Interface, [...] Report Verified Date/Time: 04/20/2019 19:51:20 Reading Location: [facility] [id number] Neuro Reading Room Performing Organization Address City/State/Zipcode Phone Number RIS * Potassium (04/20/2019 2:50 PM CDT) Potassium 3.7Comment: Specimen slightly 3.5 - 5.1 meq/L [facility] hemolyzed [facility] Specimen Blood Narrative Performed At Check Serum Potassium level 2 hours after oral potassium replacement completed [facility] or 30 min after intravenous potassium replacement. [facility] Performing Organization Address [facility] [address] [phone] [place] [address] * Magnesium (04/20/2019 2:50 PM CDT) Only the most recent of 2 results within the time period is included. Magnesium 2.5Comment: Specimen slightly 1.6 - 2.6 mg/dL [facility] hemolyzed [facility] Specimen Blood Narrative Performed At Check Serum Potassium level 2 hours after oral potassium replacement completed [facility] or 30 min after intravenous potassium replacement. [facility] Performing Organization Address [facility] Phone Number [address] [address] [facility] * 2D Echo W/Doppler(CW/PW/Color) (04/20/2019 10:52 AM CDT) Ejection Fraction [facility] ECHO HEARTLAB [facility] Specimen Narrative Performed At Transthoracic Echocardiography Report (TTE) [facility] ECHO HEARTLAB Demographics [facility] Patient NameCHADANIELLA DREW Date of Study 04/20/2019 KALI Visit [id number] Room Number 7519 Number Date of 1970Referring Chalino Skaggs Physician Age 48 year(s)Hook Puller Tony Lockett [facility] Dough Maker Janak Rodgers MD Procedure Type of Study [...] Study 04/20/2019 KALI Gender Female Visit Number [id number] Race Unknown Room Number 7519 Number Date of 1970 Referring Chalino Skaggs Physician Age 48 year(s) Hook Puller Tony Lockett [facility] Dough Maker Janak Vallejo Interpreting Narciso Rodgers MD Procedure [...] LVOT CI: 2.47 l/min/m^2 Performing Organization Address City/[facility] Phone Number [facility] ECHO HE[facility] * TSH/Free T4 If Indicated (04/20/2019 4:07 AM CDT) TSH 6.68 (H) 0.35 - 4.94 uIU/mL [facility] Specimen Blood Performing Organization Address City/[facility]/Zipcode Phone Number [facility] [address] [place] [address] [facility] * CBC with platelet count + automated diff (04/20/2019 4:07 AM CDT) WBC 6.9 3.5 - 10.5 K/L [facility] RBC 4.17 3.93 - 5.22 M/L [facility] Hemoglobin 12.0 11.2 - 15.7 GM/DL [facility] Hematocrit 37.0 34.1 - 44.9 % [facility] MCV 88.7 79.4 - 94.8 fL [facility] MCH 28.8 25.6 - 32.2 pg [facility] MCHC 32.4 32.2 - 35.5 GM/DL [facility] RDW 13.2 11.7 - 14.4 % [facility] Platelets 228 150 - 450 K/CU MM [facility] MPV 10.1 9.4 - 12.3 fL [facility] nRBC 0 0 - 0 /100 WBC [facility] % Neutros 67 % [facility] % Lymphs 27 % [facility] % Monos 6 % [facility] % Eos 0 % [facility] % Baso 0 % [facility] # Neutros 4.61 1.56 - 6.13 K/L [facility] # Lymphs 1.88 1.18 - 3.74 K/L [facility] # Monos 0.41 (H) 0.24 - 0.36 K/L [facility] # Eos 0.00 (L) 0.04 - 0.36 K/L [facility] # Baso 0.01 0.01 - 0.08 K/L [facility] Immature 0 0 - 1 % [facility] Granulocytes-[facility] CENTER Specimen Blood Performing Organization Address City/State/Zipcode Phone Number [place] [phone] [place] [address] [facility] * Troponin I (04/20/2019 4:07 AM CDT) Only the most recent of 2 results within the time period is included. Troponin I 0.01 0.00 - 0.03 ng/mL [facility] Specimen Blood Narrative Performed At Troponin I (TnI) levels must be interpreted in the context of the presenting [facility] symptoms and the clinical findings. Elevated TnI levels indicate myocardial [facility] damage, but are not specific for ischemic heart disease. Elevated TnI levels are seen in patients with other cardiac conditions (including myocarditis and congestive heart failure), and slight TnI elevations occur in patients with other conditions, including sepsis, renal failure, acidosis, acute neurological disease, and persistent tachyarrhythmia. Fasting Performing Organization Address City/[facility]/Zipcode Phone Number [address] [address] [phone] [place] [address] * T4, free (04/20/2019 4:07 AM CDT) Free T4 0.99 0.70 - 1.48 ng/dL [facility] Specimen Blood Performing Organization Address City/[facility] Phone Number [address] [address] [phone] [place] [address] * Phosphorus (04/20/2019 4:07 AM CDT) Phosphorus 3.3 2.3 - 4.7 mg/dL [facility] Specimen Blood Narrative Performed At Fasting [facility] Performing Organization Address City/State/Zipcode Phone Number [address] [address] [facility] * Hemoglobin A1c - Fasting (04/20/2019 4:07 AM CDT) Hemoglobin A1C 5.2 4.3 - 6.1 % [facility] Specimen Blood Narrative Performed At Fasting [facility] Performing Organization Address City/State/Zipcode Phone Number [facility] [address] [place] [address] [facility] * Vitamin B12 (04/20/2019 4:07 AM CDT) Vitamin B12 254 213 - 816 pg/mL [facility] Specimen Blood Performing Organization Address City/State/Zipcode Phone Number [facility] [address] [place], [place] [phone] [facility] * Fasting lipid panel (04/20/2019 4:07 AM CDT) Triglycerides 58 mg/dL [facility] Cholesterol 113 mg/dL [facility] HDL 36 mg/dL [facility] LDL Calculated 65 mg/dL [facility] Specimen Blood Narrative Performed At Triglyceride Reference Range: [facility] Low Risk <150 [facility] [id number] High Risk 200-499 Very High Risk>=500 Cholesterol Reference Range: Low Risk <200 [id number] High Risk>240 HDL Cholesterol Reference Range: Low Risk >=60 High Risk <40 LDL Cholesterol Reference Range: Optimal<100 Near [id number] Very High >=190 Fasting Fasting Performing Organization Address City/State/Zipcode Phone Number [facility] [address] [place] [address] [facility] * Basic Metabolic Panel (04/20/2019 4:07 AM CDT) Sodium 137 136 - 145 meq/L [facility] Potassium 2.8 (L) 3.5 - 5.1 meq/L [facility] Chloride 105 98 - 107 meq/L [facility] CO2 26 22 - 29 meq/L [facility] BUN 9 7 - 21 mg/dL [facility] Creatinine 0.74 0.57 - 1.25 mg/dL [facility] Glucose 86 70 - 105 mg/dL [facility] Calcium 7.8 (L) 8.4 - 10.2 mg/dL [facility] EGFR 83Comment: ESTIMATED GFR IS mL/min/1.73 sq m [facility] NOT ACCURATE CREATININE [facility] CLEARANCE IN PREDICTING GLOMERULAR FILTRATION RATE. ESTIMATED GFR IS NOT APPLICABLE FOR DIALYSIS PATIENTS. Specimen Blood Narrative Performed At [facility] Performing Organization Address City/State/Zipcode Phone Number [facility] [address] [place], [place] [phone] [facility] after 04/22/2018 Insurance Payer Benefit Subscriber ID Type Phone Address Plan / Group [employer] - MGD CARE [employer] xxxxxxxxxxx LOCAL PLUS Advance Directives For more information, please contact: [address] [phone] Date Inactivated Comments Code Status Date Activated 04/21/2019 12:33 AM Full Code 04/19/2019 10:01 PM This code status was determined by: Patient
--- NOTE | 2019-04-23 14:00 | NUR ---
REC'D PT AAOX3, SPEECH IS IN BETWEEN CLEAR AND INCOMPREHENSIBLE. IV TO THE RIGHT AC INTACT AND PATENT. ON ROOM AND AND NO S/S OF DISTRESS. FAMILY AT THE BEDSIDE. SIDE RAILS UP X2, BED IN LOWEST POSITION, AND CALL GELLER WITHIN REACH.
[2019-04-23 14:22] VITALS: BP 149/82
[2019-04-23 14:26] VITALS: BP 149/82
[2019-04-23 15:20] VITALS: BP 131/64
--- NOTE | 2019-04-23 15:31 | NUR ---
NOTIFIED DR. GAMEZ (COVERING FOR DR. HACKETT) OF PATIENT BEING ADMITTED FOR WEAKNESS AND BIPOLAR. DR. GAMEZ SAID TO CON'T HER HOME MEDS AND ORDERED TYLENOL PRN FOR PAIN. ORDERS CARRIED OUT.
--- NOTE | 2019-04-23 15:39 | NUR ---
DR. LOPEZ SAW PATIENT AND PLACED ORDERS.
[2019-04-23] MEDS ORDERED: ACETAMINOPHEN 325 MG TAB PO PRN (16:15)
[2019-04-23] MEDS ORDERED: SODIUM CHLORIDE 0.9% 1000ML 1,000 ML ONE (16:19)
[2019-04-23] MEDS: CLONAZEPAM 1 MG TAB PO SCH (16:29)
[2019-04-23] MEDS: LAMOTRIGINE 25 MG TAB PO SCH (16:29)
[2019-04-23 16:37] LABS: CHOL/HDL RATIO 2.3 (3.0-3.6)
[2019-04-23] MEDS: METHYLPREDNISOLONE SOD SUCC 125 MG/2ML VIAL IV SCH ×2 (16:49→21:52)
[2019-04-23] MEDS: PROMETHAZINE 25MG/ NS 50ML (IV) IV SCH ×2 (16:49→21:52)
[2019-04-23] MEDS: VALPROATE SOD INJ 500 MG in SODIUM CHLORIDE 0.9% 100 ML 100 ML IV SCH (17:44)
--- NOTE | 2019-04-23 18:43 | NUR ---
PATIENT IS ASLEEP WITH NO S/S OF DISTRESS. IV FLUIDS RUNNING. SIDE RAILS UP X2, CALL GELLER WITHIN REACH, AND BED IN LOWEST POSITION. SON AT BEDSIDE.
[2019-04-23 20:00] VITALS: BP 136/75
[2019-04-23] MEDS ORDERED: HOME MEDICATION--PATIENTS OWN PO SCH (20:00)
[2019-04-23] MEDS: ASPIRIN PO PRN (20:57)
[2019-04-23] MEDS: CAFFEINE PO PRN (20:57)
[2019-04-23] MEDS: BUTALBITAL PO PRN (20:57)
[2019-04-23] MEDS ORDERED: VALPROATE SOD INJ 500 MG in SODIUM CHLORIDE 0.9% 100 ML 100 ML IV SCH (21:00)
[2019-04-23] MEDS ORDERED: TRAZODONE HCL 50 MG TAB PO SCH (21:00)
[2019-04-23] MEDS: SODIUM CHLORIDE 0.9% 1000ML 1,000 ML IV SCH (23:45)
--- NOTE | 2019-04-23 23:54 | Consultation ---
DATE OF CONSULTATION: 04/23/2019 Neurology Consult Note HISTORY OF PRESENT ILLNESS: Ms. Bajwa is a 48-year-old right-hand dominant woman with past medical history significant for bipolar disorder, headaches, and a questionable recent stroke with no residual deficits, admitted to [facility] on April 23, 2019, with stroke-like symptoms in the setting of a severe headache. Ms. Bajwa awoke on the morning of April 23, 2019, with the following symptoms: Dysarthria, numbness over the entire face and numbness and weakness of the right arm. Ms. Bajwa does not report a visual field cut or other disturbance, aphasia, poor balance, impairment of gait, dizziness, or confusion associated with the above symptoms. Ms. Bajwa does endorse a headache, which is described as follows: The pain began across the forehead and then radiated to the occiput. The pain is described as throbbing and is rated a 6 to 7/10. Ms. Bajwa endorses mild photophobia associated with the headache. She does not report phonophobia. She does not report nausea or vomiting associated with the headache. Ms. Bajwa experienced identical symptoms on April 19, 2019. She presented to [facility] for further evaluation and treatment of her symptoms on that date. Suspecting the patient was having a stroke, Ms. Bajwa was treated with intravenous thrombolytics, then transferred to [facility] in the [facility] for further evaluation and treatment. While hospitalized, Ms. Bajwa reports undergoing an echocardiogram and MRI. Ms. Bajwa was told she had experienced a stroke. Specifically, the patient was told if anyone asked in the future if she had a stroke, she should say yes. However, Ms. Bajwa was not prescribed an anti-platelet or anticoagulant medication. She was not prescribed medication for hypertension, hyperlipidemia/dyslipidemia, or diabetes mellitus. While in the emergency center this morning, the patient underwent a CT of the brain without contrast, which did not show evidence of recent large territorial ischemia or hemorrhage. She received intravenous Valproate as treatment for her headache. Ms. Bajwa reports many of her symptoms have improved. However, she continues to have speech disturbance as well as a moderately severe headache. The patient does not report a personal history of migraines. She does not report a family history of migraines or other primary headache disorder. The patient's [id number], who is at the bedside reports the patient has recently experienced increased psychosocial stress related to caring for her elderly mother. Ms. Bajwa's rjvoww-bt-eir believes this worsen psychosocial stress is responsible for the patient's symptoms. REVIEW OF SYSTEMS: Dysarthria, numbness of the whole face, weakness and numbness of the right arm, headache, photophobia. Otherwise, a 12-point review of systems is negative. PAST MEDICAL HISTORY: Gastroesophageal reflux disease, bipolar disorder, headaches, recent stroke without residual deficits, and chronic pain. PAST SURGICAL HISTORY: Breast reduction, tonsillectomy, right knee arthroscopy, section, right rotator cuff repair, uterine ablation, appendectomy or cholecystectomy (the patient is uncertain as to which surgery she is undergone). PAST HOSPITALIZATIONS: Surgeries/procedures as listed, stroke. FAMILY MEDICAL HISTORY: Depression. The patient's maternal grandfather is from prostate cancer. Her father had diabetes mellitus. SOCIAL HISTORY: Ms. Bajwa is . She is an red leader. The patient does not report current or prior tobacco, alcohol, or recreational drug use. HOME MEDICATIONS: 1. Saphris 5 mg by mouth daily. 2. Fiorinal 1 tablet by mouth every 6 hours as needed for headache. 3. Clonazepam 1 mg by mouth twice daily. 4. [place] 10/325 mg one tablet by mouth as needed for pain. 5. Lamotrigine 50 mg by mouth twice daily. 6. Tramadol 50 mg by mouth every 4 hours as needed for pain. 7. Trazodone 150 mg by mouth at bedtime. 8. Viibryd 40 mg by mouth daily. HOSPITAL MEDICATIONS: Tylenol, clonazepam, lamotrigine, Viibryd, trazodone. ALLERGIES: SULFA. NO KNOWN FOOD ALLERGIES. NO KNOWN ALLERGIES TO LATEX. NO KNOWN ALLERGIES TO IODINE OR OTHER CONTRAST MATERIALS. PHYSICAL EXAMINATION: VITAL SIGNS: Height 67 inches, weight 251 pounds, BMI 39.3 kg/m2. Blood pressure of 149/82 mmHg, pulse 62 beats per minute. Respiratory rate 17 breaths per minute, oxygen saturation 98% on room air. GENERAL: The patient is awake and alert, does not appear distressed. Morbidly obese. HEENT: Normocephalic, atraumatic. Pupils are equal, round, and reactive to light. Moist mucous membranes. NECK: Supple. No appreciable thyromegaly. No appreciable carotid bruits. CARDIOVASCULAR: S1, S2. Regular rate and rhythm. No murmurs, rubs, or gallops. RESPIRATORY: Clear to auscultation bilaterally. No wheezes, rhonchi, or rales. EXTREMITIES: The skin is warm and dry. No clubbing, cyanosis, or edema. The posterior tibial and dorsalis pedis pulses are 2+ and symmetric. SKIN: No rashes or lesions. NEUROLOGIC: Memory/Attention: The patient is awake and alert, oriented to person, place, time, and situation. Cranial Nerves: Cranial nerve I -- not tested. Cranial nerve II, III, IV, and -- pupils are equal and round, react briskly to light (from 4 mm to 2 mm). Extraocular movements intact. No nystagmus. Cranial nerve V -- sensation to light touch and pinprick is intact in the bilateral V1 through V3 distributions. Strength of the temporalis and masseter muscles is within normal limits. Cranial nerve VII -- the face is symmetric as are all facial movements. Strength is within normal limits. Cranial nerve VIII -- hearing is intact to finger rub bilaterally. Cranial nerve IX, X -- the soft palate elevates equally and symmetrically. Cranial nerve XI -- normal strength of the bilateral sternocleidomastoid and trapezius muscles. Cranial nerve XII -- the tongue protrudes midline and moves symmetrically from [id number]. Strength: Bulk is normal. Strength is 5/5 in the bilateral deltoids, biceps, triceps, wrist flexors and extensors, finger flexors and extensors, intrinsic hand muscles, hip flexors, knee flexors and extensors, ankle dorsiflexion and plantar flexion, and intrinsic foot muscles. Tone is normal. DTRs: Deep tendon reflexes are 1+ and symmetric at the triceps, biceps, brachioradialis, patellas, and Achilles. Plantar responses are flexor bilaterally. Sensation: Sensation is intact to light touch and pinprick in both arms and both legs. Cerebellar: Xzcojq-tzsz-lgzqhh and heel-agrawal movements are intact without dysmetria or other impairment. Gait: Deferred. Speech: Spontaneous speech is slowed, but otherwise normal without appreciable dysarthria or aphasia. Repetition is intact. Involuntary movements: None. Pronator Drift: None. LABORATORY DATA: A comprehensive metabolic panel is significant for an estimated GFR of 55, albumin of 3.1, and globulin of 3.7. Cardiac enzymes are negative x1. CBC with differential and platelets is unremarkable. Coagulation profile is unremarkable. DIAGNOSTIC STUDIES: Electrocardiogram on 04/23/2019: Normal sinus rhythm at [address] of the brain without contrast 04/23/2019: On my review, there is no evidence of recent or remote large territorial ischemia, hemorrhage, mass, or mass effect. Cerebral volumes are appropriate for age. There are no findings suspicious for chronic small-vessel ischemic disease. ASSESSMENT AND PLAN: Ms. Bajwa is a 48-year-old right-hand dominant woman with past medical history as detailed, admitted to [facility] with neurological deficits in the setting of a severe headache with vascular features. At present, her neurological examination is nonfocal. Her laboratory data and other diagnostic studies have been reviewed and are documented above. As detailed in the history of present illness, Ms. Bajwa's presenting symptoms are identical to symptoms she experienced on Friday, April 19, 2019. After receiving intravenous thrombolytics in the emergency center at [facility], Ms. Bajwa was transferred to [facility] in the [facility] for further evaluation and treatment of a possible stroke. Upon discharge, Ms. Bajwa was advised to tell future health care practitioners she has had a stroke. However, the patient was not prescribed anti-platelet or anticoagulant medication for stroke prophylaxis. She was not prescribed medications for hypertension, hyperlipidemia/dyslipidemia, or diabetes mellitus type 2. During my evaluation of the patient, I requested a lipid panel and hemoglobin A1c be drawn. Those results are as follows: Total cholesterol 117, triglycerides 82, LDL cholesterol 51, HDL cholesterol 50. The hemoglobin A1c is 5.1. In my opinion, it is unlikely, Ms. Bajwa has experienced a recent stroke, given she does not appear to have any vascular risk factors for a stroke. It is far more likely, this symptoms experienced by the patient on Friday, April 19, 2019, and today, April 23, 2019 are due to complex migraine. RECOMMENDATIONS: Are as follows: 1. As stated above, I do not suspect the patient has recently experienced a stroke. However, due to treatment with intravenous thrombolytics, a stroke cannot be absolutely excluded. Therefore, Ms. Bajwa will be prescribed aspirin 81 mg by mouth daily for stroke prophylaxis. 2. For treatment of complex migraine, the patient will be treated with normal saline intravenously at 125 mL/h as well as a migraine cocktail in an effort to improve/resolve her current migraine. 3. Promethazine 25 mg intravenously every 6 hours x2 doses. 4. Methylprednisolone 125 mg intravenously every 6 hours x2 doses. 5. Valproate 500 mg intravenously every 6 hours x2 doses. 6. Defer treatment of the remaining medical comorbidities to the primary and other services following the patient. Thank you for this consultation. TIME SPENT: 70 minutes. Oly Ott MD CP/MODL /[id number] MTDD
[2019-04-24] VITALS: BP 139/65
[2019-04-24] MEDS: VALPROATE SOD INJ 500 MG in SODIUM CHLORIDE 0.9% 100 ML 100 ML IV SCH (00:15)
[2019-04-24 04:00] VITALS: BP 116/66
[2019-04-24] MEDS: SODIUM CHLORIDE 0.9% 1000ML 1,000 ML IV SCH ×3 (04:12→13:55)
[2019-04-24] MEDS: CAFFEINE PO PRN ×2 (05:18→11:20)
[2019-04-24] MEDS: BUTALBITAL PO PRN ×2 (05:18→11:20)
[2019-04-24] MEDS: ASPIRIN PO PRN ×2 (05:18→11:20)
--- NOTE | 2019-04-24 07:10 | NUR ---
received pt lying in bed with eyes open, Resp even and unlabored. no c/o pain at this time. call light within reach.
--- NOTE | 2019-04-24 07:37 | NUR ---
GAVE REPORT TO ONCOMING NURSE. CALL LIGHT WITHIN REACH. PATIENT IN BED
[2019-04-24 08:30] VITALS: BP 116/66
[2019-04-24] MEDS ORDERED: Vilazodone Hydrochloride (Viibryd) 40 MG PO SCH (09:00)
[2019-04-24] MEDS ORDERED: ASPIRIN 81 MG ENTERIC COATED PO SCH (09:00)
[2019-04-24] MEDS: CLONAZEPAM 1 MG TAB PO SCH ×2 (09:09→17:19)
[2019-04-24] MEDS: LAMOTRIGINE 25 MG TAB PO SCH ×2 (09:09→17:19)
[2019-04-24 10:03] VITALS: BP 140/67
--- NOTE | 2019-04-24 12:35 | History and Physical ---
REASON FOR ADMISSION: The patient comes in with headache and also with right-sided weakness. HISTORY OF PRESENTING ILLNESS: Ms. Garett Brewer is a 48-year-old came in with a CVA like symptoms. On April 19, the patient had experienced symptoms of right-sided weakness and also headache and facial numbness. The patient was given tPA. Symptoms resolved in about 5 minutes and the patient was transferred over to [facility]. The patient was done for workup including echocardiograms, MRIs, and the patient was not found to have any evidence of stroke, but again the patient was given TPN, improvement is noted. The patient was treated for stroke. The patient came into the office on Wednesday with migraine like syndrome. The patient was given a treatment of Phenergan and Toradol and the patient's pain did dissipate for about 6 hours and then the patient started to have pain continuously consistent with migraine and the patient came to the emergency room with some weakness and also with right-sided weakness and facial pain. PAST MEDICAL HISTORY: History of reflux esophageal disease, history of bipolar disease, history of headaches, history of chronic depression, and also history of chronic pain. PAST SURGICAL HISTORY: History of tonsillectomy, right knee arthroscopic surgery, right rotator cuff tear repair, history of uterine ablation with , appendectomy, cholecystectomy. FAMILY HISTORY: History of diabetes mellitus and hypertension, depression. SOCIAL HISTORY: . No smoking. No alcohol and no history of recreational drug use. HOME MEDICATION: The patient takes Saphris 5 mg daily, Fiorinal as needed, clonazepam twice a day, [place] 1 tablet as needed for pain, lamotrigine 50 mg, tramadol 50 mg every 6 hours as needed, trazodone 150, and Viibryd 40. ALLERGIES: THE PATIENT'S ALLERGIES TO SULFA. NO OTHER ALLERGIES. PHYSICAL EXAMINATION: GENERAL: The patient is alert and oriented x3. HEENT: Normocephalic, atraumatic. Pupils are reactive to light and accommodation. CVS: S1, S2 normal. Regular rhythm. Clear to auscultation bilaterally. EXTREMITIES: No clubbing, no cyanosis. No edema. SKIN: No rashes. Multiple ecchymoses present on the upper extremities. NEUROLOGICAL: The patient is alert and oriented x3. No cranial nerve deficits. No sensory motor deficits noted either. On deep tendon reflexes 1+ bilaterally symmetrical. Speech is normal. LABORATORY DATA: CMP shows sodium of 141, potassium 3.5, BUN of 15, creatinine of 1.07, GFR 55. Hematology; white count 6.85, hemoglobin of 13.5, hematocrit of 42.5. Coags were normal. Chemistries, HDL of 50, LDL of 51, total cholesterol 117. IMAGING STUDIES: CT scan done recently on this admission did not show any changes. No acute changes seen. ASSESSMENT: This is a 48-year-old female with. 1. History of possible stroke with tPA. 2. Complex migraine. 3. Bipolar depression. 4. History of chronic back pain. PLAN: The patient has been started on IV fluids 125 mL an hour. Solu-Medrol x2 doses have been given. has been given for her migraine. I will continue to monitor the patient along with Neurology. We will see how the progression of the headache goes and possible discharge this evening. Further recommendation per clinical course. MD RUSSELL Lynn/JORYL /[id number]
[2019-04-24 12:42] VITALS: BP 121/69
--- NOTE | 2019-04-24 14:10 | NUR ---
PT DISCUSSED IN BARRIER ROUNDS BEING TREATED FOR COMPLEX HEADACHES AND MIGRAINE, POSSIBLE DISCHARGE TODAY, PT ON HOME MEDS.
[2019-04-24 16:20] VITALS: BP 107/56
== END 2019-04-24 20:17 | disposition home or self-care (01) ==
LOC: ER 07:30 → ERHOLD 13:12 → MED/SURG2 13:41
PROVIDERS: ADMIT Family Medicine; ATTEND Family Medicine
DX: G43.109 Migraine with aura, not intractable, without status migrainosus (principal); R53.1 Weakness; F32.9 Major depressive disorder, single episode, unspecified; Z88.2 Allergy status to sulfonamides; R20.2 Paresthesia of skin; F31.9 Bipolar disorder, unspecified; K21.9 Gastro-esophageal reflux disease without esophagitis; M54.9 Dorsalgia, unspecified; Z86.73 Personal history of transient ischemic attack (TIA), and cerebral infarction without residual deficits
CPT/HCPCS: 36415; 70450; 80053; 80061; 82550; 82553; 83036; 84484; 85025; 85610; 85730; 86850; 86900; 92610; 93005; 99284; G0378 ×2; J2550; J2930; J7030 ×2; J7040

== ENCOUNTER → 2022-12-18 | Day surgery (SDC) | payer OTHER ==
[~2022-12-18] MED LIST changes: +ACETAMINOPHEN 1000 MG/100 ML 100 ML IV ONE; +BUPIVACAINE HCL 0.5% INJ 30 ML VIAL INJ ONE; +CEFAZOLIN SODIUM 2 GM ONE; +DEXAMETHASONE SOD PHOS 10 MG/1 ML VIAL ONE; +DEXAMETHASONE SOD PHOS INJ 4 MG/ML SDV ONE; +EPHEDRINE SULFATE INJ 50 MG/ML VIAL ONE; +FENTANYL CITRATE/PF 100MCG/2 ML INJ ONE; +FIORINAL 50-321 EACH PO; +KETOROLAC TROMETHAMINE 30 MG/ML VIAL ONE; +LAMICTAL100 MG PO; +LIDOCAINE 1% W/EPINEPHRINE 20 ML VIAL ONE; +LIDOCAINE HCL 2% LOCAL INJ 5 ML SDV VIAL INJ ONE; +MIDAZOLAM HCL 2 MG/2 ML VIAL ONE; +ONDANSETRON HCL INJ 2MG/ML 2ML 2 MG/ML VIAL ONE; +POVIDONE IODINE 0.05% 0.05 % ML PO ONE; +PROPOFOL IV EMULSION 10 MG/ML 20 ML VIAL ONE; +ROPIVACAINE 0.5% 5 MG/ML 30 ML SDV ONE; +SEVOFLURANE INHAL SOLN 250 ML PEN BTL ONE; +ZOFRAN4 MG SL
[2022-12-18 09:40] VITALS: BP 132/75
== END | disposition home or self-care (01) ==
LOC: OR 06:14
PROVIDERS: ATTEND Orthopaedic Surgery
DX: S83.232A Complex tear of medial meniscus, current injury, left knee, initial encounter (principal); S83.282A Other tear of lateral meniscus, current injury, left knee, initial encounter; D75.89 Other specified diseases of blood and blood-forming organs; M22.42 Chondromalacia patellae, left knee; M67.52 Plica syndrome, left knee; F31.9 Bipolar disorder, unspecified; F41.9 Anxiety disorder, unspecified; X58.XXXA Exposure to other specified factors, initial encounter; Z88.2 Allergy status to sulfonamides; Z01.810 Encounter for preprocedural cardiovascular examination; Z79.899 Other long term (current) drug therapy
CPT/HCPCS: 27599; 29882; 81025; 93005; C1713 ×2; J0131; J1100 ×2; J1885; J2001; J2250; J2405; J2704; J2795; J3010; 76000

== ENCOUNTER → 2023-03-19 | Outpatient (CLI) | payer OTHER ==
[~2023-03-19] MED LIST changes: -ACETAMINOPHEN 1000 MG/100 ML 100 ML IV ONE; -BUPIVACAINE HCL 0.5% INJ 30 ML VIAL INJ ONE; -CEFAZOLIN SODIUM 2 GM ONE; -DEXAMETHASONE SOD PHOS 10 MG/1 ML VIAL ONE; -DEXAMETHASONE SOD PHOS INJ 4 MG/ML SDV ONE; -EPHEDRINE SULFATE INJ 50 MG/ML VIAL ONE; -FENTANYL CITRATE/PF 100MCG/2 ML INJ ONE; -KETOROLAC TROMETHAMINE 30 MG/ML VIAL ONE; -LIDOCAINE 1% W/EPINEPHRINE 20 ML VIAL ONE; +LIDOCAINE HCL 1% LOCAL INJ 20 ML VIAL ONE; -LIDOCAINE HCL 2% LOCAL INJ 5 ML SDV VIAL INJ ONE; -MIDAZOLAM HCL 2 MG/2 ML VIAL ONE; -ONDANSETRON HCL INJ 2MG/ML 2ML 2 MG/ML VIAL ONE; -POVIDONE IODINE 0.05% 0.05 % ML PO ONE; -PROPOFOL IV EMULSION 10 MG/ML 20 ML VIAL ONE; -ROPIVACAINE 0.5% 5 MG/ML 30 ML SDV ONE; -SEVOFLURANE INHAL SOLN 250 ML PEN BTL ONE
== END ==
LOC: US 13:11
PROVIDERS: ATTEND Family Medicine
DX: E04.1 Nontoxic single thyroid nodule (principal)
CPT/HCPCS: 10005; 88172; 88173; J2001; 88300

== ENCOUNTER 2025-03-30 13:48 | Emergency (ER) | payer BC, OTHER ==
[~2025-03-30] VITALS: Ht 170.2 cm; Wt 113.4 kg
[~2025-03-30 13:48] MED LIST changes: -LIDOCAINE HCL 1% LOCAL INJ 20 ML VIAL ONE
[2025-03-30 14:12] VITALS: TEMP 98.7
[2025-03-30 14:38] LABS: BASOPHILS % 0.2 % (0.0-1.0); EOSINOPHILS % 0.1 % (0.0-6.0); HEMATOCRIT 45.1 % (34.2-44.1); LYMPHOCYTES # (AUTO) 2.3 (1.0-3.2); LYMPHOCYTES % 28.2 % (18.0-39.1); MEAN CORPUSCULAR HEMOGLOBIN 28.4 pg (28-32); MEAN CORPUSCULAR HGB CONC 33.3 g/dL (31-35); MEAN CORPUSCULAR VOLUME 85.3 fL (81-99); MONOCYTES # (AUTO) 0.8 (0.2-0.8); MONOCYTES % 9.3 % (4.4-11.3); NEUTROPHILS # (AUTO) 5.1 (2.1-6.9); PLATELET COUNT 265 x10e3/uL (140-360); RED BLOOD COUNT 5.29 x10e6/uL (3.6-5.1); RED CELL DISTRIBUTION WIDTH 13.2 % (11.7-14.4); WHITE BLOOD COUNT 8.16 x10e3/uL (4.8-10.8)
[2025-03-30 14:56] LABS: ALBUMIN 3.9 g/dL (3.5-5.0); ALBUMIN/GLOBULIN RATIO 0.9 (0.8-2.0); ANION GAP 16.2 mmol/L (8-16); BILIRUBIN,TOTAL 0.4 mg/dL (0.2-1.2); CALCIUM 9.4 mg/dL (8.4-10.2); CREATININE, SERUM 1.14 mg/dL (0.57-1.11); TOTAL PROTEIN 8.1 g/dL (6.5-8.1)
[2025-03-30 14:57] LABS: POTASSIUM 3.2 mmol/L (3.5-5.1)
[2025-03-30] MEDS: SODIUM CHLORIDE 0.9% 1000ML 1,000 ML IV ONE (15:16)
[2025-03-30] MEDS ORDERED: ONDANSETRON ODT4 MG PO (16:00)
[2025-03-30 16:30] VITALS: BP 134/78; PULSE 77; TEMP 97.3; O2SAT 97
[2025-03-30 16:35] VITALS: PULSE 79; RESP 18
== END 2025-03-30 16:33 | disposition home or self-care (01) ==
LOC: ER 14:27
DX: R19.7 Diarrhea, unspecified (principal); R53.1 Weakness; F41.9 Anxiety disorder, unspecified; F32.A Depression, unspecified; G47.00 Insomnia, unspecified; Z86.73 Personal history of transient ischemic attack (TIA), and cerebral infarction without residual deficits
CPT/HCPCS: 36415; 80053; 83690; 85025; 99284; J7030